=== PATIENT | male | born 1935 | race Caucasian/White ===

== ENCOUNTER 2016-12-20 17:26 | Inpatient (IN) | payer MEDICARE ==
--- NOTE | ~2016-12-20 | EGD ---
EGD REPORT [facility] [address] [place]. 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 Estimated blood loss: Minimal. Procedure: Pre-Anesthesia Assessment: - Prior to the procedure, a History and Physical was performed, and patient medications and allergies were reviewed. The patient's tolerance of previous anesthesia was also reviewed. The risks and benefits of the procedure and the sedation options and risks were discussed with the patient. All questions were answered, and informed consent was obtained. Prior Anticoagulants: The patient has taken no previous anticoagulant or antiplatelet agents. ASA Grade Assessment: II - A patient with mild systemic disease. After reviewing the risks and benefits, the patient was deemed in satisfactory condition to undergo the procedure. After obtaining informed consent, the endoscope was passed under direct vision. Throughout the procedure, the patient's blood pressure, pulse, and oxygen saturations were monitored continuously. The Endoscope was introduced through the mouth, and advanced to the second part of duodenum. The Endoscope was introduced through the mouth, and advanced to the second part of duodenum. The upper EUS was accomplished without difficulty. The patient tolerated the procedure well. The Endoscope was introduced through the mouth, and advanced to the second part of duodenum. Findings: Endosonographic Finding : There was no sign of significant endosonographic abnormality in the ampulla. No masses were identified. The ampulla was endoscopically normal. One stent was visualized endosonographically in the common bile duct. Extension of the stent was noted in the common bile duct. An oval mass was identified near the pancreatic head. The mass was hypoechoic. The mass measured 36 mm by 35 mm in maximal cross-sectional EGD REPORT [address] [address] NAME: KEVPARVEEN : 37 STATUS : ADM IN [facility]#: [id number] AGE: 81 ADM/REG DATE : 12/20/16 MR#: [id number] REPORT SERV DATE: 12/25/16 DICTATED BY: PARVEEN MORENO DATE: 12/25/16 REPORT STATUS : Draft [facility]ANSCRIBED BY: [facility] DATE: 12/25/16 diameter. The endosonographic borders were well-defined. An intact interface was seen between the mass and the adjacent structures suggesting a lack of invasion. Diagnostic needle aspiration for tissue was performed. Color Doppler imaging was utilized prior to needle puncture to confirm a lack of significant vascular structures within the needle path. Three passes were made with the 25 gauge needle using a transduodenal approach. A stylet was used. The fluid was clear and bilious. Sample(s) were sent for cytology. Estimated blood loss was minimal. Question gallbladder, although the endosonographic appearance was of solid tissue. No lymphadenopathy seen. A limited doppler examination was performed and revealed no significant vascular abnormalities. Impression: - There was no sign of significant pathology in the ampulla. - One stent was visualized endosonographically in the common bile duct. - A mass was identified near the pancreatic head with aspiration of bile - Question sludge filled gallbladder. - A limited doppler examination was performed and revealed no significant vascular abnormalities. Recommendation: - Return patient to [facility] for [facility] care. - Perform CT scan (computed tomography) of the pancreas with contrast today. Procedure Code(s): --- Professional --- 02331, Esophagogastroduodenoscopy, flexible, transoral; with transendoscopic ultrasound-guided intramural or transmural fine needle aspiration/biopsy(s) (includes endoscopic ultrasound examination of the esophagus, stomach, and either the duodenum or a surgically altered stomach where the jejunum is examined distal to the anastomosis) Diagnosis Code(s): --- Professional --- K86.8, Other specified diseases of pancreas R17, Unspecified jaundice CPT copyright 2013 [employer]. All rights reserved. The codes documented in this report are preliminary and upon vice president payment review may be revised to meet current compliance requirements. Parveen Moreno MD EGD REPORT [facility] [address] [place]. [address] NAME: PARVEEN MCKEON : 37 STATUS : ADM IN [facility]#: [id number] AGE: 81 ADM/REG DATE : 12/20/16 MR#: [id number] REPORT SERV DATE: 12/25/16 DICTATED BY: PARVEEN MORENO DATE: 12/25/16 REPORT STATUS : Draft TRANSCRIBED BY: [employer] DATE: 12/25/16 PARVEEN MORENO MD 12/25/2016 11:18 AM This report has been signed electronically. Number of Addenda: 0 Note Initiated On: 12/25/2016 9:12 AM Scope Withdrawal Time 0 hours 0 minutes 0 seconds [address] [place] [address]
--- NOTE | ~2016-12-20 | HP ---
History And Physical [address] [place]. [address] NAME: NADIA ANGULO : 37 STATUS : ADM IN [facility]#: [id number] AGE: 81 ADM/REG DATE : 12/20/16 MR#: [id number] REPORT SERV DATE: 12/20/16 DICTATED BY: BRITTANY REED DATE: 12/20/16 REPORT STATUS : Draft TRANSCRIBED BY: [employer] DATE: 12/20/16 DATE OF ADMISSION: 12/20/2016 HISTORY OF PRESENT ILLNESS: A 81-year-old man with past medical history of hypertension, hyperlipidemia, comes in to the ED due to jaundice and malaise. The patient reports that he has been feeling malaise for the last couple of weeks. He also has noticed some diarrhea associated with dark urine for one week. Denies any abdominal pain. Does have progressive jaundice. The patient, on the day prior to admission, went to primary care physician. At that time, blood pressure was on the low side. Antihypertensives were discontinued and statin was discontinued. CT of the abdomen and pelvis was ordered. On the day of admission, the CT was done, which showed common bile duct dilatation and the patient was instructed to go to the emergency room for further evaluation. On evaluation in the emergency room, the patient was noted to have transaminitis. Hospitalist is consulted for further inpatient management. ALLERGIES: 1. FERROUS SULFATE. 2. NIACIN. 3. DILAUDID. HOME MEDICATIONS: Include: 1. Xanax 1 mg p.o. at bedtime. 2. Vitamin C 500 mg p.o. daily. 3. Vitamin B12 at 3000 mcg sublingual daily. 4. Lexapro 20 mg p.o. daily. 5. Multivitamin p.o. daily. 6. Flomax 0.4 mg p.o. daily. PAST MEDICAL HISTORY: Significant for: 1. Hypertension. 2. Hyperlipidemia. 3. BPH. 4. Anxiety. SOCIAL HISTORY: Denies any alcohol, tobacco, or illicit drug use. FAMILY HISTORY: Noncontributory. REVIEW OF SYSTEMS: Denies chest pain, shortness of breath, palpitations, diaphoresis, hemoptysis, melena, hematochezia, orthopnea, lower extremity swelling, slurred speech, localized weakness, headaches, dizziness, loss of consciousness, abdominal pain, nausea, or vomiting. PHYSICAL EXAMINATION: VITAL SIGNS: Temperature 98.2, heart rate 58, blood pressure 126/69, respiratory rate 20, O2 saturation 97 on room air. History And Physical [address] [address] NAME: NADIA ANGULO : 37 STATUS : ADM IN [facility]#: [id number] AGE: 81 ADM/REG DATE : 12/20/16 MR#: [id number] REPORT SERV DATE: 12/20/16 DICTATED BY: BRITTANY REED DATE: 12/20/16 REPORT STATUS : Draft TRANSCRIBED BY: FELISHA DATE: 12/20/16 GENERAL: In no acute distress. Jaundice. HEENT: EOMI, PERRLA, nonicteric sclerae, nonerythematous pharynx. NECK: Supple. No JVD. No lymphadenopathy. RESPIRATORY: Clear to auscultation bilaterally. No wheezes, rhonchi, or crackles. CARDIOVASCULAR: Regular rate and rhythm. No murmurs, rubs, or gallops. ABDOMEN: Bowel sounds positive. Soft, nontender, nondistended. No rebound or guarding. EXTREMITIES: No edema. No cyanosis. NEUROLOGICAL: Nonfocal. LABORATORY DATA: WBC 7.3, hemoglobin 13, hematocrit 39.4, platelets 193. Sodium 136, potassium 3.4, chloride 102, bicarb 29, BUN 45, creatinine 1.65, glucose 92, calcium 9.2, albumin 2.7, total bilirubin 17.5, alkaline phosphatase 421, ALT 186, AST 134, lipase 877. ASSESSMENT: 1. Common bile duct dilatation seen in CT done prior to admission, concerning for obstruction. 2. Obstructive hepatitis. 3. Acute on chronic kidney disease stage 3. 4. Hypertension. 5. Hyperlipidemia. 6. Benign prostatic hypertrophy. 7. Anxiety. PLAN: The patient will be admitted to medical bed. Consult GI. Check right upper quadrant ultrasound. IV fluids. Recheck blood work in the morning. Restart appropriate home medications. DVT prophylaxis, SCDs. Further evaluation and management per clinical course. CODE STATUS: Full code. Total time for history and physical 35 minutes. DONG/MODL Lisa Pradhan MD / [id number] CC: Lisa Pradhan MD
--- NOTE | ~2016-12-20 | CN ---
Consultation Report [facility] [address] [place]. [address] NAME: NADIA MCKEON : 37 STATUS : ADM IN [facility]#: [id number] AGE: 81 ADM/REG DATE : 12/20/16 MR#: [id number] REPORT SERV DATE: 12/21/16 DICTATED BY: NATHAN VIVAS DATE: 12/21/16 REPORT STATUS : Draft TRANSCRIBED BY: MODL DATE: 12/21/16 GI CONSULTATION NOTE DATE OF CONSULTATION: 12/21/2016 REASON FOR CONSULTATION: Jaundice and elevated liver enzymes. HISTORY OF PRESENT ILLNESS: Mr. Mckeon is a very pleasant 81-year-old white male, who had been seen by his primary care doctor for diarrhea and jaundice and had an outpatient CT scan which showed common bile duct dilation, the report is not available in the chart at this time and elevated liver enzymes. His bilirubin on admission yesterday showed 17.5, AST was 134, ALT 186, and alkaline phosphatase 421. Today his bilirubin is 15.2, AST 116, ALT 155, and alkaline phosphatase 366. His lipase was also elevated at 877 and is now 1091. He denies any abdominal pain. No nausea or vomiting. No fevers, chills, or sweats. No chest pain or shortness of breath. His white count was 7 and he has remained afebrile during his hospitalization. An abdominal ultrasound was also performed which is pending at this time. PAST MEDICAL HISTORY: Hypertension, dyslipidemia, anxiety, and BPH. PAST SURGICAL HISTORY: Bilateral knee replacement, tonsillectomy, and back surgery. SOCIAL HISTORY: Denies any smoking, alcohol, or drug use. FAMILY HISTORY: No GI disease. MEDICATIONS: Reviewed. ALLERGIES: REVIEWED. PHYSICAL EXAMINATION: VITAL SIGNS: The patient is afebrile. His vital signs have been stable. GENERAL: The patient is awake, alert, and oriented x3. Well developed, well nourished, in no acute distress. HEENT: Atraumatic, normocephalic. Scleral icterus. Mucous membranes moist. CARDIAC: S1, S2. CHEST: Clear to auscultation bilaterally. ABDOMEN: Soft, nontender, and nondistended. Bowel sounds normoactive. No masses felt. LABORATORY DATA: Showed WBC 7, hemoglobin 11.1, hematocrit 34.7, and platelets 177. Sodium 140, potassium , chloride 106, bicarb 27, BUN 38, creatinine 1.34, glucose 96. Liver enzymes, bilirubin 15.2, AST 116, ALT 155, alkaline phosphatase 366, and lipase 1091. Ultrasound still pending at this time. IMPRESSION AND PLAN: Painless jaundice of unclear etiology. Awaiting ultrasound and we will Consultation Report [address] [place] [address] NAME: NADIA MCKEON : 37 STATUS : ADM IN [facility]#: [id number] AGE: 81 ADM/REG DATE : 12/20/16 MR#: [id number] REPORT SERV DATE: 12/21/16 DICTATED BY: NATHAN VIVAS DATE: 12/21/16 REPORT STATUS : Draft TRANSCRIBED BY: FELISHA DATE: 12/21/16 get the official report of his recent CT scan. We will check CA19-9 and CEA and we will also trend liver enzymes and lipase. He is asymptomatic and afebrile. We will plan for ERCP on Friday with anesthesia. I will discuss the above with Dr. Torres who will perform the ERCP. We will continue to follow with you. SUSHANT/FELISHA Nathan Vivas MD / [id number] CC: Lisa Pradhan MD
--- NOTE | ~2016-12-20 | DS ---
Discharge Summary [address] [place]. [address] NAME: NADIA ANGULO : 37 STATUS : DIS IN PAT#: [id number] AGE: 81 ADM/REG DATE : 12/20/16 MR#: [id number] REPORT SERV DATE: 12/28/16 DICTATED BY: BALBINA ASTUDILLO DATE: 12/27/16 REPORT STATUS : Draft TRANSCRIBED BY: MODL DATE: 12/27/16 ADMISSION DATE: 12/20/2016 DISCHARGE DATE: 12/27/2016 DISCHARGE DIAGNOSES: 1. Obstructive jaundice. 2. Status post endoscopic retrograde cholangiopancreatography with Dr. Torres. 3. Status post endoscopic ultrasound with Dr. Bailey. 4. Hypertension, stable. 5. Nausea and vomiting, resolved. 6. Acute kidney injury, resolved. CONSULTATION: GI, Dr. Yola Kenney, 12/21/2016. IMAGIN. Gallbladder ultrasound, 12/21/2016. Impression: Cholelithiasis. Dilated common bile duct, possible common duct stone. Right renal cyst. 2. CT pancreatitis, 12/25/2016. Impression: The patient has a common bile duct stent in place with minimal residual dilation of the CBD and pancreatic duct. There is intrahepatic bile duct air and air in the gallbladder. No calcified gallstones or evidence of acute cholecystitis. No focal pancreas masses are identified. There is mild peripancreatic inflammation consistent with pancreatitis. A small amount of fluid is present in the left pericolic gutter. 3. ERCP, 12/23/2016, by Dr. Torres. Impression: Distal common bile duct stricture. 4. EUS, 12/25/2016, Dr. Bailey. Impression: No signs of significant pathology in the ampulla. One stent was visualized in the common bile duct. Mass was identified near the pancreatic head with aspiration of bile, questionable sludge filled gallbladder. Limited Doppler examination was performed and revealed no significant vascular abnormalities. LABORATORY DATA: Sodium 141, potassium 3.7, chloride 110, CO2 is 26, BUN is 14, creatinine is 0.77, glucose is 98, calcium is 8.4, total protein 5.6, albumin is 1.8, globulin is 3.8, total bilirubin is 5.0, alkaline phosphatase is 221, ALT is 55, AST is 44, and lipase is 325. COURSE IN THE HOSPITAL STAY: Please refer to history and physical dictated by Dr. Lisa Pradhan on 12/20/2016 for complete admission details. This patient is a 81-year-old gentleman who presented in [facility] with complaints of malaise and jaundice. The patient reported feeling malaise since the last week prior to this admission. He also noticed dark urine and some diarrhea. The patient did deny at that time, nausea vomiting or abdominal pain. Laboratory data was obtained, which showed a bilirubin of 17.5, alkaline phos of 421, ALT of 186, AST is 134, lipase is 877. Imaging was obtained which is noted also above. 1. Obstructive jaundice. GI was consulted. Imaging was obtained as well as laboratory data. CA-19-9 was obtained, which was elevated at 654.2. The patient did undergo an Discharge Summary [address] [address] NAME: NADIA ANGULO : 37 STATUS : DIS IN PAT#: [id number] AGE: 81 ADM/REG DATE : 12/20/16 MR#: [id number] REPORT SERV DATE: 12/28/16 DICTATED BY: BALBINA ASTUDILLO DATE: 12/27/16 REPORT STATUS : Draft TRANSCRIBED BY: [employer] DATE: 12/27/[address] Torres which is noted above, as well as an EUS with Dr. Bailey. All tests were negative as well as pancreas CT. Per Dr. Kenney and Dr. Bailey's recommendation, the patient will follow up with GI in two weeks with a repeat ERCP in 4 weeks as well as repeat CT in 4 weeks. The patient will be provided with a prescription of Zofran and oxycodone as needed at home. At this time the patient denies nausea, vomiting, and pain. As noted above lab work has improved. 2. Status post ERCP with Dr. Torres. 3. Status post EUS with Dr. Bailey. 4. Hypertension. The patient's blood pressure has been monitored during his stay which has remained stable. 5. Nausea and vomiting. The patient did have complaints of nausea and vomiting in the past 48 hours. This has resolved in the past 12 hours. The patient will be provided with a prescription for Zofran if needed at home. 6. Acute kidney injury. Upon admission, the patient's BUN is 23, creatinine was 1.02. Upon discharge, his BUN is 14 and creatinine 0.77, so this has resolved. DISCHARGE MEDICATIONS: 1. Xanax 1 mg one p.o. at bedtime. 2. Vitamin C 500 mg one p.o. daily. 3. Vitamin B12 1000 mcg, 51194 mcg sublingual daily. 4. Lexapro 20 mg one p.o. daily. 5. Multivitamin one tablet p.o. daily. 6. Flomax 0.4 mg one p.o. daily. 7. Colace 100 mg one p.o. twice daily p.r.n. 8. Oxycodone 5 mg p.o. every 6 hours p.r.n. for pain. 9. Zofran 4 mg p.o. every 4 hours p.r.n. for nausea. This patient is being discharged home in hemodynamically stable condition. He will follow up with GI and will follow up with Dr. Kenney in two weeks as well as a repeat ERCP and CT of the pancreas in four weeks. A prescription for Zofran and oxycodone have been provided as needed for nausea and pain. This discharge took less than 30 minutes. DICTATED BY: Balbina Astudillo NP [facility]/MODL Balbina Astudillo NP / [id number] CC: Jose Roberto Whittaker MD
--- NOTE | ~2016-12-20 | OP ---
Record Of Operation [facility] [address] [place]. [address] NAME: NADIA ANGULO : 37 STATUS : ADM IN [facility]#: [id number] AGE: 81 ADM/REG DATE : 12/20/16 MR#: [id number] REPORT SERV DATE: 12/23/16 DICTATED BY: MANSOOR TORRES DATE: 12/23/16 REPORT STATUS : Draft TRANSCRIBED BY: MODL DATE: 12/23/16 DATE OF PROCEDURE: 12/23/2016 PROCEDURES: ERCP, sphincterotomy, obstructive cholangiogram using balloon catheter and brush cytology. INDICATION: The patient with obstructive jaundice. ENDOSCOPIST: Mansoor Torres M.D. PREMEDICATION: Given was by the anesthesiologist. Please refer to their notes. DESCRIPTION OF PROCEDURE: After obtaining informed consent, patient was brought to the Endo suite. The patient was sedated and intubated to protect the airway. The patient was then placed on prone position over the fluoroscopy table. Olympus duodenoscope was introduced into the oropharynx, was advanced under visual guidance into the esophagus, stomach, and duodenum. The second portion of the duodenum papilla was seen. Bile was seen flowing out of the papilla. Using Euclid-tome and a guidewire, we were able to cannulate the common bile duct on the initial trial. Injection of contrast showed markedly dilated common bile duct which strictured down in the distal common bile duct. The stricture measured approximately 5 cm long extending from distal common bile duct all the way down to the ampulla of the common bile duct. No filling defects were noted. At this point, sphincterotomy was performed followed by insertion of balloon catheter. Balloon was dilated above the stricture and obstructive cholangiogram was performed which revealed once again dilated common bile duct, dilated intrahepatic ducts, dilated left and right hepatic ducts. No filling defects were noted. By deflating the balloon, we were able to measure the length of the stricture being approximately 5 cm. At this point, brush cytology catheter was inserted and cytologic specimen of the distal common bile duct stricture was obtained to rule out any dysplasia. Once this was accomplished, a 10-Malay 7 cm biliary stent was placed. The biliary stent was successfully deployed through the stricture allowing the bile to drain. Once the bile was seen freely flowing into the duodenum through the stent, the procedure was then terminated. The patient tolerated the procedure well. IMPRESSION: Distal common bile duct stricture. PLAN: Obtain endoscopic ultrasound to evaluate the pancreas to rule out pancreatic tumor as the cause of common bile duct stricture. HP/MODL Mansoor Torres M.D. / [id number] Record Of [address] [address] NAME: NADIA ANGULO : 37 STATUS : ADM IN PAT#: [id number] AGE: 81 ADM/REG DATE : 12/20/16 MR#: [id number] REPORT SERV DATE: 12/23/16 DICTATED BY: MANSOOR TORRES DATE: 12/23/16 REPORT STATUS : Draft TRANSCRIBED BY: FELISHA DATE: 12/23/16 CC: MD Buck Redding II
[2016-12-20 14:39] LABS: BASOPHILS 0.3 %; BASOPHILS ABSOLUTE 0.02 10/3/uL (0.0-0.16); EOSINOPHILS 1.6 %; EOSINOPHILS ABSOLUTE 0.12 10/3/uL (0.0-0.53); ER CBC TAT 0 Hrs 08 Mins; IMMATURE GRANULOCYTES 5.2 %; LYMPHOCYTES 12.5 %; LYMPHOCYTES ABSOLUTE 0.91 10/3/uL (0.67-4.30); MEAN CORPUSCULAR HEMOGLOB 29.3 pg (26.0-34.0); MONOCYTES 6.3 %; MONOCYTES ABSOLUTE 0.46 10/3/uL (0.21-1.20); NEUTROPHILS 74.1 %; NEUTROPHILS ABSOLUTE 5.41 10/3/uL (2.02-8.40); WHITE BLOOD CELLS 7.3 10/3/uL (4.5-10.5)
[2016-12-20 14:40] LABS: HEMATOCRIT 39.4 % (40.0-51.0); IMMATURE GRANULOCYTES ABSOLUTE 0.38 10/3/uL (0.0-0.11); MANUAL DIFF NO %; MEAN CORPUSCULAR VOLUME 88.7 fL (80-100); PLATELET COUNT 193 10/3/uL (150-400); RBC DISTRIBUTION WIDTH 18.2 % (12.0-16.0); RED CELL COUNT 4.44 10/6/uL (4.7-6.1)
[2016-12-20 14:59] LABS: ASCORBIC ACID (UR NOT ORDER) NEG (NEG); BILIRUBIN, URINE MODERATE (NEG); ER URINALYSIS TAT 0 Hrs 28 Mins; KETONE, URINE NEGATIVE (NEG); LEUKOCYTE ESTERASE(NOT OR SMALL (NEG); NITRITE (URINE) NEG (NEG); WBC (NOT ORDERED) (RFLEX) 7 (0-5)
[2016-12-20 15:02] LABS: A/G RATIO 0.6 (0.7-1.9); ALBUMIN 2.7 G/DL (3.5-5.0); ALKALINE PHOSPHATASE 421 U/L (45-117); CALCIUM, SERUM 9.2 MG/DL (8.5-10.4); CHLORIDE, SERUM 102 MMOL/L (96-112); CO2 (CARBON DIOXIDE) 29 MMOL/L (24-34); GLOBULIN 4.5 G/DL (2.5-4.1); POTASSIUM, SERUM 3.4 MMOL/L (3.5-5.3); SGOT(AST) 134 U/L (5-40); SGPT(ALT) 186 U/L (5-65); SODIUM, SERUM 136 MMOL/L (135-148); TOTAL PROTEIN 7.2 G/DL (6.0-8.5)
[2016-12-20 15:11] LABS: BUN (BLOOD UREA NITROGEN) 45 MG/DL (6-23); CREATININE 1.65 MG/DL (0.70-1.30); GFR AFRICAN AMERICAN 45 ML/MIN (>=60); GFR NON AFRICAN AMERICAN 39 ML/MIN (>=60); GLUCOSE, SERUM 92 MG/DL (60-99); TOTAL BILIRUBIN 17.5 MG/DL (0-1.2)
[2016-12-20 15:23] LABS: BAND NEUTROPHILS 2 %; BASOPHILS 1 %; BASOPHILS ABSOLUTE (CALC) 0.07 10/3/uL (0.0-0.16); ER DIFF TAT 0 Hrs 52 Mins; IMMATURE GRANS ABSOLUTE (CALC) 0.37 10/3/uL (0.0-0.11); LYMPHOCYTES 12 %; LYMPHOCYTES ABSOLUTE (CALC) 0.88 10/3/uL (0.67-4.30); METAMYELOCYTES 4 %; MONOCYTES 6 %; MONOCYTES ABSOLUTE (CALC) 0.44 10/3/uL (0.21-1.20); MYELOCYTES 1 %; NEUTROPHILS ABSOLUTE (CALC) 5.55 10/3/uL (2.02-8.40); PLATELET ESTIMATE ADQ (ADEQUATE); SEGMENTED NEUTROPHIL (0) 74 %; TARGET CELLS FEW (3-10/OIF) (0-1/OIF); TOTAL NUCLEATED CELLS 100
[~2016-12-20 17:26] MED LIST: AVODART PO; FLOMAX4 PO; LEXAPRO20 PO; LOFIB160 PO; LOTE20 PO; NORCO1 TAB PO; NORV10 PO; SENOKOTS PO; VITAMIN B-122500 MCG SL; VITAMIN D31000 UNIT PO; VITC500 PO; XANAX1 MG PO
[2016-12-20] MEDS ORDERED: LEXAPRO20 PO (18:23)
[2016-12-20] MEDS ORDERED: FLOMAX4 PO (18:24)
[2016-12-20] MEDS ORDERED: XANAX1 MG PO (18:25)
[2016-12-20] MEDS ORDERED: VITAMIN B-121000 MC1 SL (18:26)
[2016-12-20] MEDS ORDERED: MULTIVITAMI1 PO (18:27)
[2016-12-20] MEDS ORDERED: VITC500 PO (18:27)
[2016-12-21 05:26] LABS: HEMOGLOBIN 11.1 g/dL (13.6-17.8); MEAN CORPUSCULAR HEMOGLOB 28.4 pg (26.0-34.0); MEAN CORPUSCULAR VOLUME 88.7 fL (80-100); PLATELET COUNT 177 10/3/uL (150-400); RBC DISTRIBUTION WIDTH 18.2 % (12.0-16.0); RED CELL COUNT 3.91 10/6/uL (4.7-6.1)
[2016-12-21 05:27] LABS: HEMATOCRIT 34.7 % (40.0-51.0); MANUAL DIFF YES %
[2016-12-21 05:49] LABS: A/G RATIO 0.6 (0.7-1.9); ALBUMIN 2.4 G/DL (3.5-5.0); CALCIUM, SERUM 8.8 MG/DL (8.5-10.4); CHLORIDE, SERUM 106 MMOL/L (96-112); CO2 (CARBON DIOXIDE) 27 MMOL/L (24-34); CREATININE 1.34 MG/DL (0.70-1.30); DIRECT BILIRUBIN 12.1 MG/DL (0.0-0.4); GFR AFRICAN AMERICAN 58 ML/MIN (>=60); GFR NON AFRICAN AMERICAN 50 ML/MIN (>=60); GLOBULIN 3.8 G/DL (2.5-4.1); GLUCOSE, SERUM 96 MG/DL (60-99); POTASSIUM, SERUM 3.7 MMOL/L (3.5-5.3); SGOT(AST) 116 U/L (5-40); SGPT(ALT) 155 U/L (5-65); SODIUM, SERUM 140 MMOL/L (135-148); TOTAL PROTEIN 6.2 G/DL (6.0-8.5)
[2016-12-21 05:52] LABS: ALKALINE PHOSPHATASE 366 U/L (45-117); BUN (BLOOD UREA NITROGEN) 38 MG/DL (6-23); INDIRECT BILIRUBIN(NOT ORDER) 3.1 MG/DL (0.1-0.9); TOTAL BILIRUBIN 15.2 MG/DL (0-1.2)
[2016-12-21 05:57] LABS: ANISOCYTOSIS 1+ (5-10/OIF) (0-5/OIF); BAND NEUTROPHILS 1 %; EOSINOPHILS 3 %; EOSINOPHILS ABSOLUTE (CALC) 0.21 10/3/uL (0.0-0.53); IMMATURE GRANS ABSOLUTE (CALC) 0.21 10/3/uL (0.0-0.11); LYMPHOCYTES 9 %; LYMPHOCYTES ABSOLUTE (CALC) 0.63 10/3/uL (0.67-4.30); METAMYELOCYTES 3 %; MONOCYTES 11 %; MONOCYTES ABSOLUTE (CALC) 0.77 10/3/uL (0.21-1.20); NEUTROPHILS ABSOLUTE (CALC) 5.18 10/3/uL (2.02-8.40); PLATELET ESTIMATE ADQ (ADEQUATE); SEGMENTED NEUTROPHIL (0) 73 %; TOTAL NUCLEATED CELLS 100
[2016-12-21 05:58] LABS: TARGET CELLS FEW (3-10/OIF) (0-1/OIF)
[2016-12-21 16:20] LABS: CA-19-9 654.2 U/ML (< 37.0); INTERNATIONAL NORMAL RATI 1.2 UNITS (-); PROTIME (NOT ORD) 15.4 SEC (12.0-14.5)
[2016-12-21 16:23] LABS: CEA 1.8 NG/ML
[2016-12-22 06:35] LABS: BASOPHILS 0.4 %; BASOPHILS ABSOLUTE 0.03 10/3/uL (0.0-0.16); EOSINOPHILS 3.1 %; EOSINOPHILS ABSOLUTE 0.21 10/3/uL (0.0-0.53); HEMATOCRIT 32.8 % (40.0-51.0); HEMOGLOBIN 10.7 g/dL (13.6-17.8); IMMATURE GRANULOCYTES 4.8 %; IMMATURE GRANULOCYTES ABSOLUTE 0.32 10/3/uL (0.0-0.11); LYMPHOCYTES 16.4 %; MEAN CORPUS HGB CONC 32.6 g/dL (32.0-36.0); MEAN CORPUSCULAR HEMOGLOB 28.5 pg (26.0-34.0); MEAN CORPUSCULAR VOLUME 87.5 fL (80-100); NEUTROPHILS 69.3 %; NEUTROPHILS ABSOLUTE 4.65 10/3/uL (2.02-8.40); PLATELET COUNT 171 10/3/uL (150-400); RBC DISTRIBUTION WIDTH 18.4 % (12.0-16.0); RED CELL COUNT 3.75 10/6/uL (4.7-6.1); WHITE BLOOD CELLS 6.7 10/3/uL (4.5-10.5)
[2016-12-22 06:36] LABS: MANUAL DIFF NO %
[2016-12-22 06:40] LABS: A/G RATIO 0.6 (0.7-1.9); ALBUMIN 2.2 G/DL (3.5-5.0); CALCIUM, SERUM 8.7 MG/DL (8.5-10.4); CHLORIDE, SERUM 107 MMOL/L (96-112); CO2 (CARBON DIOXIDE) 27 MMOL/L (24-34); GFR AFRICAN AMERICAN 74 ML/MIN (>=60); GFR NON AFRICAN AMERICAN 64 ML/MIN (>=60); GLOBULIN 3.8 G/DL (2.5-4.1); GLUCOSE, SERUM 86 MG/DL (60-99); POTASSIUM, SERUM 3.7 MMOL/L (3.5-5.3); SGOT(AST) 99 U/L (5-40); SGPT(ALT) 136 U/L (5-65); SODIUM, SERUM 139 MMOL/L (135-148)
[2016-12-22 06:41] LABS: ALKALINE PHOSPHATASE 343 U/L (45-117); BUN (BLOOD UREA NITROGEN) 28 MG/DL (6-23); TOTAL BILIRUBIN 13.9 MG/DL (0-1.2)
[2016-12-22 07:19] LABS: ANISOCYTOSIS 1+ (5-10/OIF) (0-5/OIF); PLATELET ESTIMATE ADQ (ADEQUATE)
[2016-12-22 07:20] LABS: TARGET CELLS FEW (3-10/OIF) (0-1/OIF)
[2016-12-23 05:51] LABS: HEMATOCRIT 32.5 % (40.0-51.0); HEMOGLOBIN 10.6 g/dL (13.6-17.8); MEAN CORPUS HGB CONC 32.6 g/dL (32.0-36.0); MEAN CORPUSCULAR HEMOGLOB 28.8 pg (26.0-34.0); MEAN CORPUSCULAR VOLUME 88.3 fL (80-100); PLATELET COUNT 193 10/3/uL (150-400); RBC DISTRIBUTION WIDTH 18.3 % (12.0-16.0); RED CELL COUNT 3.68 10/6/uL (4.7-6.1); WHITE BLOOD CELLS 6.3 10/3/uL (4.5-10.5)
[2016-12-23 05:55] LABS: MANUAL DIFF YES %
[2016-12-23 06:05] LABS: INTERNATIONAL NORMAL RATI 1.2 UNITS (-); PARTIAL THROMBO TIME 37.6 SEC (22.5-37.2); PROTIME (NOT ORD) 15.4 SEC (12.0-14.5)
[2016-12-23 06:15] LABS: A/G RATIO 0.6 (0.7-1.9); ALBUMIN 2.2 G/DL (3.5-5.0); CALCIUM, SERUM 8.7 MG/DL (8.5-10.4); CHLORIDE, SERUM 108 MMOL/L (96-112); CO2 (CARBON DIOXIDE) 26 MMOL/L (24-34); CREATININE 1.02 MG/DL (0.70-1.30); GFR AFRICAN AMERICAN 81 ML/MIN (>=60); GFR NON AFRICAN AMERICAN 70 ML/MIN (>=60); GLOBULIN 3.8 G/DL (2.5-4.1); GLUCOSE, SERUM 92 MG/DL (60-99); POTASSIUM, SERUM 3.5 MMOL/L (3.5-5.3); SGOT(AST) 92 U/L (5-40); SGPT(ALT) 123 U/L (5-65); SODIUM, SERUM 140 MMOL/L (135-148)
[2016-12-23 06:16] LABS: ALKALINE PHOSPHATASE 328 U/L (45-117); BUN (BLOOD UREA NITROGEN) 23 MG/DL (6-23); TOTAL BILIRUBIN 11.8 MG/DL (0-1.2)
[2016-12-23 06:28] LABS: BAND NEUTROPHILS 2 %; EOSINOPHILS 4 %; EOSINOPHILS ABSOLUTE (CALC) 0.25 10/3/uL (0.0-0.53); IMMATURE GRANS ABSOLUTE (CALC) 0.25 10/3/uL (0.0-0.11); LYMPHOCYTES 11 %; LYMPHOCYTES ABSOLUTE (CALC) 0.69 10/3/uL (0.67-4.30); METAMYELOCYTES 4 %; MONOCYTES 4 %; MONOCYTES ABSOLUTE (CALC) 0.25 10/3/uL (0.21-1.20); NEUTROPHILS ABSOLUTE (CALC) 4.85 10/3/uL (2.02-8.40); SEGMENTED NEUTROPHIL (0) 75 %; TOTAL NUCLEATED CELLS 100
[2016-12-23 06:29] LABS: ANISOCYTOSIS 1+ (5-10/OIF) (0-5/OIF); PLATELET ESTIMATE ADQ (ADEQUATE)
[2016-12-24 05:26] LABS: BASOPHILS 0.1 %; BASOPHILS ABSOLUTE 0.01 10/3/uL (0.0-0.16); EOSINOPHILS 1.1 %; HEMOGLOBIN 11.4 g/dL (13.6-17.8); IMMATURE GRANULOCYTES 1.9 %; IMMATURE GRANULOCYTES ABSOLUTE 0.18 10/3/uL (0.0-0.11); LYMPHOCYTES 6.4 %; MEAN CORPUS HGB CONC 31.8 g/dL (32.0-36.0); MEAN CORPUSCULAR HEMOGLOB 28.3 pg (26.0-34.0); MEAN CORPUSCULAR VOLUME 88.8 fL (80-100); MONOCYTES 2.6 %; MONOCYTES ABSOLUTE 0.25 10/3/uL (0.21-1.20); NEUTROPHILS 87.9 %; PLATELET COUNT 174 10/3/uL (150-400); RBC DISTRIBUTION WIDTH 18.1 % (12.0-16.0); RED CELL COUNT 4.03 10/6/uL (4.7-6.1)
[2016-12-24 05:29] LABS: HEMATOCRIT 35.8 % (40.0-51.0); MANUAL DIFF NO %; WHITE BLOOD CELLS 9.4 10/3/uL (4.5-10.5)
[2016-12-24 05:37] LABS: A/G RATIO 0.6 (0.7-1.9); ALBUMIN 2.2 G/DL (3.5-5.0); CALCIUM, SERUM 8.8 MG/DL (8.5-10.4); CHLORIDE, SERUM 108 MMOL/L (96-112); CO2 (CARBON DIOXIDE) 25 MMOL/L (24-34); CREATININE 0.98 MG/DL (0.70-1.30); GFR AFRICAN AMERICAN 85 ML/MIN (>=60); GFR NON AFRICAN AMERICAN 73 ML/MIN (>=60); GLOBULIN 3.9 G/DL (2.5-4.1); GLUCOSE, SERUM 99 MG/DL (60-99); SGOT(AST) 81 U/L (5-40); SGPT(ALT) 108 U/L (5-65); SODIUM, SERUM 140 MMOL/L (135-148); TOTAL PROTEIN 6.1 G/DL (6.0-8.5)
[2016-12-24 05:39] LABS: ALKALINE PHOSPHATASE 309 U/L (45-117); BUN (BLOOD UREA NITROGEN) 19 MG/DL (6-23); POTASSIUM, SERUM 4.3 MMOL/L (3.5-5.3); TOTAL BILIRUBIN 9.5 MG/DL (0-1.2)
[2016-12-24 06:14] LABS: ANISOCYTOSIS 1+ (5-10/OIF) (0-5/OIF)
[2016-12-24 06:15] LABS: PLATELET ESTIMATE ADQ (ADEQUATE); STOMATOCYTES 1+ (3-10/OIF) (0-2/OIF); TARGET CELLS FEW (3-10/OIF) (0-1/OIF)
[2016-12-25 04:43] LABS: INTERNATIONAL NORMAL RATI 1.5 UNITS (-); PARTIAL THROMBO TIME 38.8 SEC (22.5-37.2); PROTIME (NOT ORD) 17.5 SEC (12.0-14.5)
[2016-12-25 04:50] LABS: A/G RATIO 0.6 (0.7-1.9); ALBUMIN 2.2 G/DL (3.5-5.0); BUN (BLOOD UREA NITROGEN) 17 MG/DL (6-23); CALCIUM, SERUM 8.4 MG/DL (8.5-10.4); CHLORIDE, SERUM 106 MMOL/L (96-112); CO2 (CARBON DIOXIDE) 22 MMOL/L (24-34); CREATININE 0.89 MG/DL (0.70-1.30); GFR AFRICAN AMERICAN 94 ML/MIN (>=60); GFR NON AFRICAN AMERICAN 81 ML/MIN (>=60); GLUCOSE, SERUM 90 MG/DL (60-99); SGOT(AST) 64 U/L (5-40); SGPT(ALT) 87 U/L (5-65); SODIUM, SERUM 138 MMOL/L (135-148); TOTAL PROTEIN 6.2 G/DL (6.0-8.5)
[2016-12-25 04:52] LABS: POTASSIUM, SERUM 3.1 MMOL/L (3.5-5.3); TOTAL BILIRUBIN 6.7 MG/DL (0-1.2)
[2016-12-25 04:53] LABS: ALKALINE PHOSPHATASE 287 U/L (45-117)
[2016-12-26 04:16] LABS: A/G RATIO 0.6 (0.7-1.9); ALBUMIN 2.1 G/DL (3.5-5.0); CALCIUM, SERUM 8.5 MG/DL (8.5-10.4); CHLORIDE, SERUM 109 MMOL/L (96-112); GFR AFRICAN AMERICAN 98 ML/MIN (>=60); GFR NON AFRICAN AMERICAN 85 ML/MIN (>=60); GLOBULIN 3.7 G/DL (2.5-4.1); GLUCOSE, SERUM 76 MG/DL (60-99); POTASSIUM, SERUM 3.3 MMOL/L (3.5-5.3); SGOT(AST) 55 U/L (5-40); SGPT(ALT) 69 U/L (5-65); SODIUM, SERUM 143 MMOL/L (135-148); TOTAL PROTEIN 5.8 G/DL (6.0-8.5)
[2016-12-26 04:17] LABS: ALKALINE PHOSPHATASE 236 U/L (45-117); BUN (BLOOD UREA NITROGEN) 13 MG/DL (6-23); CO2 (CARBON DIOXIDE) 27 MMOL/L (24-34); TOTAL BILIRUBIN 6.2 MG/DL (0-1.2)
[2016-12-27 06:15] LABS: A/G RATIO 0.5 (0.7-1.9); ALBUMIN 1.8 G/DL (3.5-5.0); BUN (BLOOD UREA NITROGEN) 14 MG/DL (6-23); CALCIUM, SERUM 8.4 MG/DL (8.5-10.4); CHLORIDE, SERUM 110 MMOL/L (96-112); CO2 (CARBON DIOXIDE) 26 MMOL/L (24-34); CREATININE 0.77 MG/DL (0.70-1.30); GFR AFRICAN AMERICAN 100 ML/MIN (>=60); GFR NON AFRICAN AMERICAN 86 ML/MIN (>=60); GLOBULIN 3.8 G/DL (2.5-4.1); GLUCOSE, SERUM 98 MG/DL (60-99); POTASSIUM, SERUM 3.7 MMOL/L (3.5-5.3); SGOT(AST) 44 U/L (5-40); SGPT(ALT) 55 U/L (5-65); SODIUM, SERUM 141 MMOL/L (135-148); TOTAL PROTEIN 5.6 G/DL (6.0-8.5)
[2016-12-27 06:16] LABS: ALKALINE PHOSPHATASE 221 U/L (45-117)
[2016-12-27] MEDS ORDERED: ZOFRAN4 PO (08:23)
[2016-12-27] MEDS ORDERED: OXYCOD PO (08:51)
[2016-12-27] MEDS ORDERED: DSS PO (08:52)
== END 2016-12-27 10:45 | disposition home or self-care (01) | DRG 445 ==
LOC: ER 17:26 → CDU1 18:13 → 4EA 18:22
PROVIDERS: Emergency Medicine; Internal Medicine; Internal Medicine Gastroenterology; Nurse Practitioner Adult Health
PROC: 0F798DZ Dilation of Common Bile Duct with Intraluminal Device, Via Natural or Artificial Opening Endoscopic (ICD-10-PCS; principal; 2016-12-20)
PROC: BF131ZZ Fluoroscopy of Gallbladder and Bile Ducts using Low Osmolar Contrast (ICD-10-PCS; 2016-12-20)
DX: K83.1 Obstruction of bile duct (principal); N17.9 Acute kidney failure, unspecified; E78.5 Hyperlipidemia, unspecified; N40.0 Benign prostatic hyperplasia without lower urinary tract symptoms; F41.9 Anxiety disorder, unspecified; I12.9 Hypertensive chronic kidney disease with stage 1 through stage 4 chronic kidney disease, or unspecified chronic kidney disease; E11.22 Type 2 diabetes mellitus with diabetic chronic kidney disease; N18.3 Chronic kidney disease, stage 3 (moderate)
CPT/HCPCS: 74170; 74330; 76705; 80053; 81001; 82150; 82247; 82248; 82378; 83690; 83735; 84132; 85025; 85049; 85610; 85730; 86301; 87086; 88112; 88172; 88173; 93005; 99285; A9270-GY; C1725; C2625; J0330; J0360; J1956; J2405; J2550; Q9967